=== PATIENT | female | born 1965 ===

== ENCOUNTER 2021-01-08 09:07 | Outpatient (CLI) | payer OTHER | END 2021-01-12 15:25 | disposition home or self-care (01) | LOC: SONOGRAMA 09:07 | PROVIDERS: ATTEND Pathology Anatomic Pathology & Clinical Pathology | DX: E04.1 Nontoxic single thyroid nodule (principal); N31.8 Other neuromuscular dysfunction of bladder ==

== ENCOUNTER 2023-08-11 10:03 | Outpatient (CLI) | payer OTHER ==
[2023-08-11 11:25] LABS: HEMATOCRIT 40.3 % (36.0-45.00); HEMOGLOBIN 13.6 g/dL (12.0-15.00); MEAN CELL VOLUME 88.2 fL (80.00-100.00); MEAN CORPUSCULAR HEMOGLOBIN 29.8 pg (27.00-32.0); MEAN CORPUSCULAR HGB CONC 33.8 g/dl (32.0-36.0); PLATELET COUNT 116 K/uL (150-450); RED BLOOD COUNT 4.57 M/uL (4.00-6.00); RED CELL DISTRIBUTION WIDTH 13.6 % (11.5-14.5)
[2023-08-11 11:35] LABS: % SATURACION 32.7 % (15-50); ALBUMIN 4.1 gm/dL (3.4-5.0); BILIRUBIN TOTAL 0.58 mg/dL (0.3-1.2); CALCIUM 9.5 mg/dL (8.5-10.1); CREATININE SERUM 0.67 mg/dL (0.55-1.02); FERRITIN 51.6 NG/ML (8-252); GFR 90.4; GLOBULINA 3.5 G/DL (2.4-3.5); POTASSIUM 3.66 mEq/L (3.5-5.1); TOTAL PROTEIN 7.6 gm/dL (6.4-8.2); TSH 0.677 uIU/mL (0.358-3.74)
[2023-08-11 13:06] LABS: FOLIC ACID > 20.00 ng/ml (4.78-20)
[2023-08-12 15:42] LABS: MANUAL PLATELET COUNT 218
[2023-08-12 15:43] LABS: PLATELET ESTIMATE NORMAL (NORMAL)
[2023-08-13 08:07] LABS: TRANSFERIN 283 mg/dL (192-364)
[2023-08-13 10:11] LABS: ANTI THYROID PEROXIDASE < 9 IU/mL (0-34)
[2023-08-13 14:07] LABS: hav igm Negative (Negative); hcv Non Reactive (Non Reactive); hep b c Negative (Negative)
== END 2023-08-11 10:04 | disposition home or self-care (01) ==
LOC: LAB 10:03
PROVIDERS: ATTEND Internal Medicine Hematology & Oncology
DX: D69.6 Thrombocytopenia, unspecified (principal); D51.3 Other dietary vitamin B12 deficiency anemia; E03.8 Other specified hypothyroidism; E55.9 Vitamin D deficiency, unspecified; E06.3 Autoimmune thyroiditis; D50.8 Other iron deficiency anemias; R79.9 Abnormal finding of blood chemistry, unspecified; K76.89 Other specified diseases of liver; I10 Essential (primary) hypertension; B20 Human immunodeficiency virus [HIV] disease